=== PATIENT | male | born 1950 | race Caucasian/White ===

== ENCOUNTER 2019-08-27 16:02 | Inpatient (IN) | payer MEDICARE, OTHER ==
[~2019-08-27] VITALS: Ht 180.3 cm; Wt 71.0 kg
[~2019-08-27 16:02] MED LIST: etomidate 2mg/ml inj. ONE
[2019-08-27] MEDS ORDERED: normal saline 1000ML IV soln IV ONE (16:10)
[2019-08-27 16:48] LABS: BASOPHILS % (AUTO) 0.2 % (0-1); EOSINOPHILS # (AUTO) 0.2 X10'3 (0-0.9); EOSINOPHILS % (AUTO) 1.4 % (0-6); HEMATOCRIT 28.3 % (42.0-52.0); HEMOGLOBIN 9.4 g/dl (14.0-17.9); LYMPHOCYTES # (AUTO) 0.6 X10'3 (1.1-4.8); MEAN CORPUSCULAR HEMOGLOBIN 28.4 PG (27.0-31.0); MEAN CORPUSCULAR HGB CONC 33.3 g/dL (33.0-36.5); MEAN CORPUSCULAR VOLUME 85.1 FL (78-98); MEAN PLATELET VOLUME 9.4 FL (7.4-10.4); MONOCYTES # (AUTO) 0.4 X10'3 (0-0.9); MONOCYTES % (AUTO) 2.7 % (2-12); NEUTROPHILS # (AUTO) 13.5 X10'3 (1.8-7.7); NEUTROPHILS % (AUTO) 91.7 % (42-75); PLATELET COUNT 59 X10'3 (140-440); RED BLOOD COUNT 3.33 X10'6 (4.70-6.10); RED CELL DISTRIBUTION WIDTH 14.3 % (11.5-14.5); WHITE BLOOD COUNT 14.7 X10'3 (4.5-11.0)
[2019-08-27 17:06] LABS: ALANINE AMINOTRANSFERASE 35 U/L (12-78); ALBUMIN 1.5 G/DL (3.4-5.0); ALBUMIN/GLOBULIN RATIO 0.3 (1.1-1.5); ALKALINE PHOSPHATASE 124 IU/L (46-116); ANION GAP 9 (8-16); ASPARTATE AMINO TRANSFERASE 51 U/L (10-37); BILIRUBIN,TOTAL 0.8 MG/DL (0.1-1.0); BLOOD UREA NITROGEN 78 MG/DL (7-18); BUN/CREATININE RATIO 38.6 (5.4-32.0); CALCIUM 7.6 MG/DL (8.5-10.1); CHLORIDE 98 MMOL/L (99-107); CREATININE 2.02 MG/DL (0.60-1.10); GLUCOSE 122 MG/DL (70-104); POTASSIUM 3.3 MMOL/L (3.5-5.1); SODIUM 130 MMOL/L (135-145); TOTAL CARBON DIOXIDE 23.4 MMOL/L (24-32); TOTAL PROTEIN 5.9 G/DL (6.4-8.2); eGFR 33 ML/MIN
[2019-08-27 17:11] LABS: ETHANOL < 0.010 GM/DL (0.0-0.010); MAGNESIUM 2.6 MG/DL (1.5-2.4)
[2019-08-27 17:13] LABS: LACTIC SEPSIS 1.4 MMOL/L (0.4-2.0)
[2019-08-27 17:18] LABS: AMMONIA < 10 UMOL/L (11-32)
[2019-08-27] MEDS ORDERED: cefepime 2g/NS 100ml ADVANTAGE 100 ML IV SCH (17:20)
[2019-08-27] MEDS ORDERED: cefepime 2g/NS 100ml ADVANTAGE 100 ML IV ONE (17:24)
[2019-08-27] MEDS ORDERED: IBUP-1985 PO (17:25)
[2019-08-27] MEDS ORDERED: IBUP-2697 PO (17:28)
[2019-08-27 17:39] LABS: PLATELET ESTIMATE DECREASED; TOTAL CELLS COUNTED 100
[2019-08-27] MEDS ORDERED: potassium Cl 20 mEq SR tablet PO STA (17:44)
[2019-08-27] MEDS ORDERED: magnesium 2GM in 50ml NS 50 ML IV ONE (17:45)
[2019-08-27] MEDS ORDERED: magnesium Cl slow-release 64mg tablet PO PRN (18:40)
[2019-08-27] MEDS ORDERED: potassium CL 10mEq/100ml bag 100 ML IV PRN ×2 (18:40)
[2019-08-27] MEDS ORDERED: HYDROcodone/acetaminophen 5mg/325mg tablet PO PRN (18:40)
[2019-08-27] MEDS ORDERED: ondansetron/PF 4mg/2ml inj IV PRN (18:40)
[2019-08-27] MEDS ORDERED: magnesium 4gm in 100ml NS 100 ML IV PRN (18:40)
[2019-08-27] MEDS ORDERED: HYDROcodone/acetaminophen 10/325mg tab PO PRN (18:40)
[2019-08-27] MEDS ORDERED: magnesium 2GM in 50ml NS 50 ML IV PRN (18:40)
[2019-08-27] MEDS ORDERED: mag hydrox/Alum hydrox/simeth 30ml oral suspension PO PRN (18:40)
[2019-08-27] MEDS ORDERED: potassium Cl 20 mEq SR tablet PO PRN ×2 (18:40)
[2019-08-27 18:41] LABS: CLARITY,URINE CLEAR (Clear); COLOR,URINE YELLOW (Yellow); GLUCOSE, URINE NEGATIVE (Neg); KETONES,URINE NEGATIVE (Neg); LEUKOCYTE ESTERASE ,URINE NEGATIVE (Neg); NITRITES, URINE NEGATIVE (Neg); OCCULT BLOOD,URINE TRACE-INTACT (Neg); PH,URINE 5.5 (4.8-8.0); PROTEIN,URINE TRACE mg/dl (Neg)
[2019-08-27 18:52] LABS: UA COLLECTION TYPE URINAL
[2019-08-27 18:54] LABS: BACTERIA,URINE NONE SEEN /HPF (Neg); CELLULAR CAST 0-4 /LPF (NEGATIVE); RBC,URINE 0-2 /HPF (0-2); SQUAMOUS EPITHELIAL CELL,UR FEW /LPF (FEW); TRANSITIONAL EPI CELLS,URINE FEW /HPF; WBC,URINE 0-4 /HPF (0-4)
[2019-08-27] MEDS ORDERED: LIDOcaine 2% 10ml TOPICAL JELLY (Urojet) MM ONE (19:10)
[2019-08-27] MEDS ORDERED: thiamine inj. 100 MG in normal saline 100ml IV soln 100 ML IV ONE (19:45)
[2019-08-27] MEDS ORDERED: haloperidol lactate 5mg/ml inj IM PRN (19:45)
[2019-08-27] MEDS ORDERED: LORazepam 1 MG tablet PO PRN (19:45)
[2019-08-27] MEDS ORDERED: LORazepam 2 mg/ml vial IV PRN (19:45)
[2019-08-27] MEDS ORDERED: haloperidol 5mg tablet PO PRN (19:45)
[2019-08-27] MEDS: K and/or MAG REPLACEMENT MC SCH (20:00)
[2019-08-27] MEDS: docusate sod 100mg capsule PO SCH (20:00)
[2019-08-27] MEDS: normal saline 1000ml 1,000 ML IV SCH (20:03)
[2019-08-27] MEDS: metroNIDAZOLE-Flagyl 500mg/NS 100 ML IV SCH (20:03)
[2019-08-27] MEDS ORDERED: thiamine 100mg/ml 2ml inj. IV ONE (20:25)
--- NOTE | 2019-08-27 20:33 | NUR ---
COLACE HELD, PATIENT WITH DIARRHEA.
[2019-08-27] MEDS: ciprofloxacin/D5W 200mg/100mL 100 ML IV SCH (20:47)
--- NOTE | 2019-08-27 21:35 | NUR ---
PATIENT ADMITTED TO ROOM 357A FROM ER FOR LARGE LIVER MASS, RENAL FAILURE AND FAILURE TO THRIVE. PLACED COMFORTABLE IN BED. VITAL SIGNS TAKEN AND RECORDED.
[2019-08-28] VITALS (17 sets, daily range): BP systolic 81–114; BP diastolic 50–75
[2019-08-28] MEDS ORDERED: heparin, porcine 5000 units/ml vial SQ SCH
[2019-08-28 05:44] LABS: BASOPHILS % (AUTO) 0.3 % (0-1); EOSINOPHILS % (AUTO) 0.4 % (0-6); HEMATOCRIT 26.6 % (42.0-52.0); HEMOGLOBIN 8.8 g/dl (14.0-17.9); LYMPHOCYTES # (AUTO) 0.3 X10'3 (1.1-4.8); LYMPHOCYTES % (AUTO) 2.7 % (21-51); MEAN CORPUSCULAR HEMOGLOBIN 29.3 PG (27.0-31.0); MEAN CORPUSCULAR HGB CONC 33.3 g/dL (33.0-36.5); MEAN CORPUSCULAR VOLUME 87.9 FL (78-98); MEAN PLATELET VOLUME 8.9 FL (7.4-10.4); MONOCYTES # (AUTO) 1.9 X10'3 (0-0.9); MONOCYTES % (AUTO) 17.5 % (2-12); NEUTROPHILS # (AUTO) 8.6 X10'3 (1.8-7.7); NEUTROPHILS % (AUTO) 79.1 % (42-75); PLATELET COUNT 51 X10'3 (140-440); RED BLOOD COUNT 3.02 X10'6 (4.70-6.10); RED CELL DISTRIBUTION WIDTH 14.5 % (11.5-14.5); WHITE BLOOD COUNT 10.9 X10'3 (4.5-11.0)
[2019-08-28] MEDS: normal saline 1000ml 1,000 ML IV SCH ×2 (05:58→14:56)
[2019-08-28 06:06] LABS: ALANINE AMINOTRANSFERASE 31 U/L (12-78); ALBUMIN 1.3 G/DL (3.4-5.0); ALBUMIN/GLOBULIN RATIO 0.3 (1.1-1.5); ALKALINE PHOSPHATASE 105 IU/L (46-116); ANION GAP 9 (8-16); ASPARTATE AMINO TRANSFERASE 35 U/L (10-37); BILIRUBIN,TOTAL 0.6 MG/DL (0.1-1.0); BLOOD UREA NITROGEN 65 MG/DL (7-18); BUN/CREATININE RATIO 42.2 (5.4-32.0); CALCIUM 7.4 MG/DL (8.5-10.1); CHLORIDE 104 MMOL/L (99-107); CREATININE 1.54 MG/DL (0.60-1.10); GLUCOSE 109 MG/DL (70-104); LIPASE 110 U/L (73-393); MAGNESIUM 2.7 MG/DL (1.5-2.4); PHOSPHORUS 4.7 MG/DL (2.3-4.5); SODIUM 135 MMOL/L (135-145); TOTAL CARBON DIOXIDE 22.5 MMOL/L (24-32); TOTAL PROTEIN 5.5 G/DL (6.4-8.2); eGFR 45 ML/MIN
[2019-08-28 06:14] LABS: POTASSIUM 2.9 MMOL/L (3.5-5.1)
--- NOTE | 2019-08-28 06:30 | NUR ---
Problems reprioritized. Patient report given, questions answered & plan of care reviewed with LINDA ASENCIO. REPORTED ABOUT CRITICAL POTASSIUM 2.9 AND PATIENT ALREADY WITH ORDER OF REPLACEMENT PROTOCOL.
--- NOTE | 2019-08-28 06:50 | NUR ---
Patient in room [facility] 357. I have received report from Kelsey Cole RN and had the opportunity to ask questions and assume patient care.
[2019-08-28] MEDS: docusate sod 100mg capsule PO SCH ×2 (07:59→19:42)
[2019-08-28] MEDS: thiamine 100mg tablet PO SCH (07:59)
[2019-08-28] MEDS: ciprofloxacin/D5W 200mg/100mL 100 ML IV SCH ×2 (07:59→19:41)
[2019-08-28] MEDS: folic acid 1mg tablet PO SCH (07:59)
[2019-08-28] MEDS: multivitamins, therapeutics tablet PO SCH (07:59)
[2019-08-28] MEDS: metroNIDAZOLE-Flagyl 500mg/NS 100 ML IV SCH ×2 (07:59→17:41)
[2019-08-28] MEDS ORDERED: MVI, adult No.4 with vit. K 10 ML in dextrose 5% water 500ml 500 ML IV SCH ×2 (08:00)
[2019-08-28] MEDS ORDERED: ipratropium/albuterol 3ml nebule ONE (08:46)
[2019-08-28] MEDS ORDERED: methylPREDNISolone sod succ 125mg/2ml vial IV ONE (08:50)
[2019-08-28 09:05] LABS: ABG BASE EXCESS -14.4 mmol/L (-2.0-3.0); ABG HCO3 11.8 mmol/L (22.0-26.0); ABG OXYGEN SATURATION 98.8 % (95-98); ABG PCO2 (T) 28.9 mmHg (35.0-45.0); ABG PO2 (T) 163.1 mmHg (83-108); ALLEN'S TEST POSITIVE; FCOHb 0.3 % (0.5-1.5); FLOW 15 L/min; FMetHb 0.3 % (0.3-1.12); FO2Hb 98.2 % (94-100); TOTAL HEMOGLOBIN 10.6 G/dl (14.0-17.9)
[2019-08-28 09:06] LABS: PLATELET ESTIMATE DECREASED; TOTAL CELLS COUNTED 100
--- NOTE | 2019-08-28 09:35 | NUR ---
Pt stable this AM by 0800. Pt stated he was a bit short of breath as he was sitting in the bedside commode. Pt was a bit shake but stable. Pt given Flagyl & Cipro, once pt was put on a chair from commode pt stated he was having a hard time breathing. O2 was bumped up to 5L. RR was called, vitals taken, antibiotics stooped and NS at 100ml continue to run. Pt continued to have RF, pt transferred to bed. pt felt hot, temp was 102.7. ICU nurse aware of temp. RR team took over. RT gave treatment & put on a rebreather mask 15L. Pt continued to deteriorate RR team & Dr Christianson agreed to send Pt to ICU. ABGs drawn.
--- NOTE | 2019-08-28 09:36 | NUR ---
patient arrived to 2010 alert and oriented. attached to monitor and oriented to room and given call light with instructions to call for assistance. Sinus tach 130's, RR 30's sats 100 on nonrebreather. Hypotensive 98/63
[2019-08-28] MEDS ORDERED: normal saline 1000ml 1,000 ML IV ONE ×3 (10:00→12:30)
[2019-08-28] MEDS ORDERED: LIDOcaine 2% 10ml TOPICAL JELLY (Urojet) TP ONE (10:00)
[2019-08-28 10:03] LABS: HEMOGLOBIN 9.7 g/dl (14.0-17.9); MEAN PLATELET VOLUME 8.9 FL (7.4-10.4)
[2019-08-28 10:05] LABS: MEAN CORPUSCULAR HEMOGLOBIN 29.1 PG (27.0-31.0); MEAN CORPUSCULAR HGB CONC 33.4 g/dL (33.0-36.5); RED BLOOD COUNT 3.33 X10'6 (4.70-6.10); RED CELL DISTRIBUTION WIDTH 14.4 % (11.5-14.5); WHITE BLOOD COUNT 7.2 X10'3 (4.5-11.0)
[2019-08-28 10:12] LABS: PLATELET COUNT 43 X10'3 (140-440)
[2019-08-28 10:21] LABS: ANION GAP 11 (8-16); ASPARTATE AMINO TRANSFERASE 63 U/L (10-37); BLOOD UREA NITROGEN 63 MG/DL (7-18); CHLORIDE 104 MMOL/L (99-107); MAGNESIUM 2.3 MG/DL (1.5-2.4); POTASSIUM 3.9 MMOL/L (3.5-5.1); SODIUM 133 MMOL/L (135-145)
[2019-08-28 10:22] LABS: ALANINE AMINOTRANSFERASE 32 U/L (12-78); ALBUMIN 1.4 G/DL (3.4-5.0); ALBUMIN/GLOBULIN RATIO 0.3 (1.1-1.5); ALKALINE PHOSPHATASE 167 IU/L (46-116); BILIRUBIN,TOTAL 0.8 MG/DL (0.1-1.0); CALCIUM 7.6 MG/DL (8.5-10.1); CREATININE 1.73 MG/DL (0.60-1.10); GLUCOSE 155 MG/DL (70-104); PHOSPHORUS 5.5 MG/DL (2.3-4.5); TOTAL PROTEIN 5.8 G/DL (6.4-8.2); eGFR 39 ML/MIN
[2019-08-28 10:25] LABS: BUN/CREATININE RATIO 36.4 (5.4-32.0)
[2019-08-28 10:33] LABS: PLATELET ESTIMATE DECREASED; TOTAL CELLS COUNTED 100
[2019-08-28] MEDS: acetaminophen 325mg tablet PO PRN (10:33)
--- NOTE | 2019-08-28 11:38 | NUR ---
Confirmed with MD that CT is IV contrast only
[2019-08-28] MEDS: K and/or MAG REPLACEMENT MC SCH ×2 (12:04→19:42)
[2019-08-28 12:50] LABS: ABG BASE EXCESS -5.7 mmol/L (-2.0-3.0); ABG HCO3 17.4 mmol/L (22.0-26.0); ABG OXYGEN SATURATION 93.6 % (95-98); ABG PCO2 (T) 25.6 mmHg (35.0-45.0); ALLEN'S TEST POSITIVE; FCOHb 0.4 % (0.5-1.5); FLOW 1 L/min; FMetHb 0.2 % (0.3-1.12)
[2019-08-28] MEDS ORDERED: iohexol 300mg/ml 100ml inj. ONE (13:13)
--- NOTE | 2019-08-28 14:41 | NUR ---
Malnutrition consult: Multiple attempted visits with pt at bedside however pt sleeping. Pt initially admitted to surgical floor however transferred to critical care s/p rapid response because of respiratory distress per MD notes. Patient's current wt of 63.64 kg is pt stated with only scaled wt hx of 73 kg taken 08/05/16 using standing scale. Pt with severe visible muscle wasting in clavicle area with mild bilat temporal wasting. Per H&P pt reports very poor PO intake over the past several weeks however continues to drink alcohol daily. Pt s/p BSS today with ST recs mech soft grind all food with thin liquids, pending documentation of PO intake for today although pt with 50% PO intake at dinner last night. Pt with no documented edema and only mild muscle weakness however per ED report pt states he has been having to use a cane over the last two weeks d/t weakness. Pt currently meets criteria for malnutrition, MD notified. Pt would benefit from malnutrition education once stable. Pt admitted with sepsis, STACEY, and large liver mass likely hepatocellular carcinoma per MD notes. Pt reports constipation over the past few days now with some intermittent small loose stools per ED report. Pt receiving routine bowel care and pt documented with two BMs 08/26. Will continue to follow closely and make recommendations as appropriate. Recommendations: 1) Continue mech soft grind all renal diet with thin liquids per ST recs 2) Monitor need for ONS 3) Continue Thiamine, Folic acid, and MVI given EtOH hx 4) Monitor need for Phos binder; serum Phos 5.5 today 5) Routine bowel care 6) Wt per rx Addendum: 08/28/19 at [address] Amended: Links added.
--- NOTE | 2019-08-28 14:51 | NUR ---
Pt continues to be hypotensive despite 3L NS. notified. He states he will be here soon
[2019-08-28] MEDS ORDERED: midazolam 100mg in NS 100ml 100 ML IV PRN (15:01)
[2019-08-28] MEDS ORDERED: fentaNYL/PF 50MCG/1 ML 2ML syringe IV PRN (15:05)
[2019-08-28] MEDS ORDERED: midazolam 2 mg/2 ml injection IV ONE (15:05)
[2019-08-28] MEDS ORDERED: ipratropium/albuterol 3ml nebule NEB PRN (15:05)
[2019-08-28] MEDS ORDERED: midazolam 2 mg/2 ml injection ONE ×3 (15:14→15:24)
[2019-08-28] MEDS ORDERED: NORepinephrine 8mg/ 250ml NS 250 ML IV PRN ×2 (15:17→15:20)
[2019-08-28] MEDS ORDERED: MIDAZolam 5mg/ml 2ml vial IV ONE ×2 (15:20→15:30)
[2019-08-28] MEDS ORDERED: etomidate 2mg/ml inj. IV ONE (15:25)
[2019-08-28] MEDS: FENTANYL-0.9 % NACL/PF 100 ML IV PRN (16:08)
[2019-08-28 16:16] LABS: ABG BASE EXCESS -10.5 mmol/L (-2.0-3.0); ABG HCO3 14.4 mmol/L (22.0-26.0); ABG PCO2 (T) 26.2 mmHg (35.0-45.0); ABG PH (T) 7.348 (7.350-7.450); ABG PO2 (T) 191.4 mmHg (83-108); ALLEN'S TEST POSITIVE; FCOHb 0.3 % (0.5-1.5); FMetHb 0.2 % (0.3-1.12); FO2Hb 98.5 % (94-100); RESPIRATORY RATE 20 b/min; TIDAL VOLUME 400 mL; TOTAL HEMOGLOBIN 8.9 G/dl (14.0-17.9)
[2019-08-28 16:26] LABS: OXYGEN SATURATION (MIXED VEN) 82.8 % (60-80); PO2 MIXED VENOUS (TEMP COR) 57.4 mmHg (35-46)
[2019-08-28 17:56] LABS: OXYGEN SATURATION (MIXED VEN) 81.8 % (60-80); PO2 MIXED VENOUS (TEMP COR) 51.2 mmHg (35-46)
--- NOTE | 2019-08-28 18:30 | NUR ---
Patient in room CICU 2010. I have received report from Jayy ASENCIO and had the opportunity to ask questions and assume patient care.
[2019-08-28] MEDS: ipratropium/albuterol 3ml nebule NEB SCH ×2 (18:57→23:14)
[2019-08-28] MEDS: lactobacillus rhamnosus 10,000 MMU CELLS/CAPSULE PO SCH (19:42)
[2019-08-28] MEDS ORDERED: diatr meglu/diatrizoate 30ml oral sol.-(3 dose) bottle PO SCH (21:00)
[2019-08-29] VITALS (24 sets, daily range): BP systolic 92–116; BP diastolic 56–79
[2019-08-29] MEDS: metroNIDAZOLE-Flagyl 500mg/NS 100 ML IV SCH ×3 (00:11→15:19)
[2019-08-29] MEDS: normal saline 1000ml 1,000 ML IV SCH ×4 (00:11→23:29)
[2019-08-29 02:37] LABS: BASOPHILS % (AUTO) 0.2 % (0-1); EOSINOPHILS % (AUTO) 0 % (0-6); HEMATOCRIT 25.7 % (42.0-52.0); HEMOGLOBIN 8.4 g/dl (14.0-17.9); LYMPHOCYTES # (AUTO) 0.5 X10'3 (1.1-4.8); LYMPHOCYTES % (AUTO) 4.2 % (21-51); MEAN CORPUSCULAR HEMOGLOBIN 28.5 PG (27.0-31.0); MEAN CORPUSCULAR HGB CONC 32.7 g/dL (33.0-36.5); MEAN CORPUSCULAR VOLUME 87.2 FL (78-98); MEAN PLATELET VOLUME 9.3 FL (7.4-10.4); MONOCYTES # (AUTO) 0.3 X10'3 (0-0.9); MONOCYTES % (AUTO) 2.5 % (2-12); NEUTROPHILS # (AUTO) 11.5 X10'3 (1.8-7.7); NEUTROPHILS % (AUTO) 93.1 % (42-75); PLATELET COUNT 53 X10'3 (140-440); RED BLOOD COUNT 2.95 X10'6 (4.70-6.10); RED CELL DISTRIBUTION WIDTH 14.7 % (11.5-14.5); WHITE BLOOD COUNT 12.4 X10'3 (4.5-11.0)
[2019-08-29 02:43] LABS: ALANINE AMINOTRANSFERASE 28 U/L (12-78); ALBUMIN 1.3 G/DL (3.4-5.0); ALBUMIN/GLOBULIN RATIO 0.3 (1.1-1.5); ALKALINE PHOSPHATASE 100 IU/L (46-116); ANION GAP 7 (8-16); ASPARTATE AMINO TRANSFERASE 22 U/L (10-37); BILIRUBIN,TOTAL 0.4 MG/DL (0.1-1.0); BLOOD UREA NITROGEN 58 MG/DL (7-18); BUN/CREATININE RATIO 41.4 (5.4-32.0); CALCIUM 7.5 MG/DL (8.5-10.1); CHLORIDE 112 MMOL/L (99-107); GLUCOSE 177 MG/DL (70-104); LIPASE < 50 U/L (73-393); MAGNESIUM 2.5 MG/DL (1.5-2.4); PHOSPHORUS 6.3 MG/DL (2.3-4.5); POTASSIUM 4.1 MMOL/L (3.5-5.1); SODIUM 140 MMOL/L (135-145); TOTAL CARBON DIOXIDE 20.6 MMOL/L (24-32); TOTAL PROTEIN 5.3 G/DL (6.4-8.2); eGFR 50 ML/MIN
[2019-08-29] MEDS: ipratropium/albuterol 3ml nebule NEB SCH ×4 (02:57→19:57)
[2019-08-29 03:11] LABS: ABG BASE EXCESS -8.8 mmol/L (-2.0-3.0); ABG HCO3 16.2 mmol/L (22.0-26.0); ABG OXYGEN SATURATION 96.7 % (95-98); ABG PCO2 (T) 30.9 mmHg (35.0-45.0); ABG PH (T) 7.334 (7.350-7.450); ABG PO2 (T) 97.4 mmHg (83-108); FCOHb 0.3 % (0.5-1.5); FMetHb 0.1 % (0.3-1.12); FO2Hb 96.3 % (94-100); PATIENT TEMPERATURE 36.5; PEEP 5 cm H2O; RESPIRATORY RATE 20 b/min; TIDAL VOLUME 400 mL; TOTAL HEMOGLOBIN 9.1 G/dl (14.0-17.9)
[2019-08-29] MEDS: ciprofloxacin/D5W 200mg/100mL 100 ML IV SCH (07:41)
[2019-08-29] MEDS: folic acid 1mg tablet PO SCH (07:42)
[2019-08-29] MEDS: lactobacillus rhamnosus 10,000 MMU CELLS/CAPSULE PO SCH ×2 (07:42→20:12)
[2019-08-29] MEDS: thiamine 100mg tablet PO SCH (07:42)
[2019-08-29] MEDS: docusate sod 100mg capsule PO SCH ×2 (07:44→20:12)
[2019-08-29] MEDS: multivitamins, therapeutics tablet PO SCH (07:52)
[2019-08-29] MEDS: K and/or MAG REPLACEMENT MC SCH ×2 (08:00→20:00)
[2019-08-29] MEDS: FENTANYL-0.9 % NACL/PF 100 ML IV PRN (09:53)
[2019-08-29] MEDS ORDERED: racepinephrine 11.25mg/0.5ml nebule NEB PRN (10:40)
--- NOTE | 2019-08-29 11:10 | NUR ---
Pt extubated at 1110 by RT Jillian. Pt on 3L NC 02 saturation 99%, HR 93, BP 120/77. Responding appropriately.
[2019-08-29] MEDS: CefTRIAXone/D5W-Rocephin 1gm 50 ML IV SCH (17:16)
[2019-08-29 17:58] LABS: CLARITY,URINE SLIGHTLY CLOUDY (Clear); COLOR,URINE Yellow (Yellow); PH,URINE 5.5 (4.8-8.0); UA COLLECTION TYPE FOLEY CATH
[2019-08-29 17:59] LABS: GLUCOSE, URINE Negative (Neg); KETONES,URINE Negative (Neg); LEUKOCYTE ESTERASE ,URINE NEGATIVE (Neg); NITRITES, URINE NEGATIVE (Neg); OCCULT BLOOD,URINE TRACE-INTACT (Neg); PROTEIN,URINE Negative (Neg); UROBILINOGEN,URINE 0.2 E.U/dL (0.2-1.0)
[2019-08-29 18:04] LABS: MUCUS STRANDS FEW /LPF (Neg); SQUAMOUS EPITHELIAL CELL,UR FEW /LPF (FEW)
[2019-08-29 18:05] LABS: WBC,URINE 0-4 /HPF (0-4)
[2019-08-29 18:06] LABS: CAL OXALATE CRYSTALS FEW /HPF (NEGATIVE)
[2019-08-29 18:07] LABS: BACTERIA,URINE FEW /HPF (Neg); URIC ACID CRYSTALS 1+ /HPF (NEGATIVE)
--- NOTE | 2019-08-29 18:30 | NUR ---
Patient in room CICU 2010. I have received report from LUIS M Hope and had the opportunity to ask questions and assume patient care. Patient seated in bed, Awake and alert to person, place and time. Patient requesting water.
[2019-08-29 19:49] LABS: UA EOSINOPHILS NO EOS /HPF
[2019-08-29] MEDS: mineral oil/petrolatum ophthal oint EACHEYE SCH (20:00)
[2019-08-30] VITALS (24 sets, daily range): BP systolic 113–158; BP diastolic 63–94
[2019-08-30] MEDS: metroNIDAZOLE-Flagyl 500mg/NS 100 ML IV SCH ×2 (00:14→08:27)
[2019-08-30] MEDS: mineral oil/petrolatum ophthal oint EACHEYE SCH ×2 (00:15→08:00)
[2019-08-30] MEDS ORDERED: mag hydrox/Alum hydrox/simeth 30ml oral suspension PO PRN (00:30)
[2019-08-30] MEDS: ipratropium/albuterol 3ml nebule NEB SCH ×4 (02:09→20:08)
[2019-08-30 03:15] LABS: BASOPHILS # (AUTO) 0.1 X10'3 (0-0.2); BASOPHILS % (AUTO) 1.4 % (0-1); EOSINOPHILS % (AUTO) 0.3 % (0-6); HEMATOCRIT 24.1 % (42.0-52.0); LYMPHOCYTES # (AUTO) 0.7 X10'3 (1.1-4.8); LYMPHOCYTES % (AUTO) 7.3 % (21-51); MEAN CORPUSCULAR HEMOGLOBIN 28.7 PG (27.0-31.0); MEAN CORPUSCULAR HGB CONC 33.2 g/dL (33.0-36.5); MEAN CORPUSCULAR VOLUME 86.2 FL (78-98); MEAN PLATELET VOLUME 8.5 FL (7.4-10.4); MONOCYTES # (AUTO) 0.3 X10'3 (0-0.9); MONOCYTES % (AUTO) 3.1 % (2-12); NEUTROPHILS # (AUTO) 8.4 X10'3 (1.8-7.7); NEUTROPHILS % (AUTO) 87.9 % (42-75); PLATELET COUNT 54 X10'3 (140-440); RED CELL DISTRIBUTION WIDTH 14.6 % (11.5-14.5); WHITE BLOOD COUNT 9.5 X10'3 (4.5-11.0)
[2019-08-30 03:34] LABS: ALANINE AMINOTRANSFERASE 18 U/L (12-78); ALBUMIN 1.3 G/DL (3.4-5.0); ALBUMIN/GLOBULIN RATIO 0.3 (1.1-1.5); ALKALINE PHOSPHATASE 90 IU/L (46-116); ANION GAP 8 (8-16); ASPARTATE AMINO TRANSFERASE 16 U/L (10-37); BILIRUBIN,TOTAL 0.6 MG/DL (0.1-1.0); BLOOD UREA NITROGEN 43 MG/DL (7-18); BUN/CREATININE RATIO 39.1 (5.4-32.0); CALCIUM 7.3 MG/DL (8.5-10.1); CHLORIDE 113 MMOL/L (99-107); GLUCOSE 125 MG/DL (70-104); LIPASE 174 U/L (73-393); MAGNESIUM 1.9 MG/DL (1.5-2.4); PHOSPHORUS 2.7 MG/DL (2.3-4.5); POTASSIUM 3.6 MMOL/L (3.5-5.1); SODIUM 141 MMOL/L (135-145); TOTAL CARBON DIOXIDE 19.8 MMOL/L (24-32); TOTAL PROTEIN 5.1 G/DL (6.4-8.2); eGFR 66 ML/MIN
--- NOTE | 2019-08-30 05:03 | NUR ---
Patient requesting water throughout shift. Needs to be seated upright while eating or drinking. Patient experiences hiccups and belching frequently with intake of fluids. Patient educated on swallowing slower and taking less volume when drinking. Patient is weak and unable to reposition himself in bed without assistance. Patient repositioned every 2 hours and as needed throughout shift.
--- NOTE | 2019-08-30 06:10 | NUR ---
Problems reprioritized. Patient report given, questions answered & plan of care reviewed with LUIS M Alexandre.
--- NOTE | 2019-08-30 06:20 | NUR ---
Patient in room CICU 2011B. I have received report from Kati and had the opportunity to ask questions and assume patient care.
[2019-08-30] MEDS: K and/or MAG REPLACEMENT MC SCH ×2 (08:00→20:00)
[2019-08-30] MEDS: thiamine 100mg tablet PO SCH (08:26)
[2019-08-30] MEDS: folic acid 1mg tablet PO SCH (08:26)
[2019-08-30] MEDS: multivitamins, therapeutics tablet PO SCH (08:26)
[2019-08-30] MEDS: lactobacillus rhamnosus 10,000 MMU CELLS/CAPSULE PO SCH ×2 (08:26→19:54)
[2019-08-30] MEDS: docusate sod 100mg capsule PO SCH ×3 (08:26→21:58)
[2019-08-30] MEDS: CefTRIAXone/D5W-Rocephin 1gm 50 ML IV SCH (11:50)
--- NOTE | 2019-08-30 16:05 | NUR ---
Patient c/o "I can't breathe" after given neb treatment. SpO2 97% on RA, RR 12-18 and speaking in full sentences. Patient lungs are clear bilaterally with good air movement, no stridor on auscultation. Patient continuing to speak in full sentences. Patient stating "put the tube back in my throat" and "can I have an inhaler". Offered patient neb treatment and patient declined stating "that's not the same". Explained to patient plan of care and that we are closely monitoring him. Patient then fell back to sleep. Maintaining airway at this time and will continue to monitor patient.
--- NOTE | 2019-08-30 16:20 | NUR ---
Patient requesting popsicle, no complaints of respiratory distress at this time. VS remain stable.
[2019-08-30] MEDS: normal saline 1000ml 1,000 ML IV SCH (16:41)
[2019-08-30] MEDS: metroNIDAZOLE 500mg tablet PO SCH (16:41)
[2019-08-30] MEDS ORDERED: normal saline 1000ml 1,000 ML IV ONE (17:20)
--- NOTE | 2019-08-30 18:14 | NUR ---
Problems reprioritized. Patient report given, questions answered & plan of care reviewed with MANUEL ASENCIO. Patient stable at time of shift change.
--- NOTE | 2019-08-30 18:28 | NUR ---
Patient in room CICU 2010. I have received report from LUIS M Alexandre and had the opportunity to ask questions and assume patient care.
[2019-08-30] MEDS: HYDROcodone/acetaminophen 5mg/325mg tablet PO PRN (19:57)
[2019-08-31] VITALS (21 sets, daily range): BP systolic 120–146; BP diastolic 66–93
[2019-08-31] MEDS: metroNIDAZOLE 500mg tablet PO SCH ×2 (00:52→07:46)
[2019-08-31] MEDS: HYDROcodone/acetaminophen 5mg/325mg tablet PO PRN (00:53)
[2019-08-31] MEDS: ipratropium/albuterol 3ml nebule NEB SCH ×4 (02:05→20:07)
[2019-08-31 02:50] LABS: BASOPHILS % (AUTO) 0.3 % (0-1); EOSINOPHILS # (AUTO) 0.1 X10'3 (0-0.9); EOSINOPHILS % (AUTO) 0.9 % (0-6); HEMATOCRIT 22.7 % (42.0-52.0); HEMOGLOBIN 7.5 g/dl (14.0-17.9); LYMPHOCYTES # (AUTO) 0.7 X10'3 (1.1-4.8); LYMPHOCYTES % (AUTO) 9.5 % (21-51); MEAN CORPUSCULAR HEMOGLOBIN 28.8 PG (27.0-31.0); MEAN CORPUSCULAR VOLUME 87.2 FL (78-98); MEAN PLATELET VOLUME 8.1 FL (7.4-10.4); MONOCYTES # (AUTO) 0.3 X10'3 (0-0.9); MONOCYTES % (AUTO) 4.1 % (2-12); NEUTROPHILS # (AUTO) 5.9 X10'3 (1.8-7.7); NEUTROPHILS % (AUTO) 85.2 % (42-75); PLATELET COUNT 60 X10'3 (140-440); RED CELL DISTRIBUTION WIDTH 14.6 % (11.5-14.5); WHITE BLOOD COUNT 6.9 X10'3 (4.5-11.0)
[2019-08-31 02:59] LABS: ALANINE AMINOTRANSFERASE 17 U/L (12-78); ALBUMIN 1.2 G/DL (3.4-5.0); ALBUMIN/GLOBULIN RATIO 0.3 (1.1-1.5); ALKALINE PHOSPHATASE 74 IU/L (46-116); ANION GAP 6 (8-16); ASPARTATE AMINO TRANSFERASE 19 U/L (10-37); BILIRUBIN,TOTAL 0.8 MG/DL (0.1-1.0); BLOOD UREA NITROGEN 24 MG/DL (7-18); CALCIUM 7.2 MG/DL (8.5-10.1); CHLORIDE 115 MMOL/L (99-107); CREATININE 0.75 MG/DL (0.60-1.10); GLUCOSE 101 MG/DL (70-104); LIPASE 119 U/L (73-393); MAGNESIUM 1.5 MG/DL (1.5-2.4); PHOSPHORUS 2.9 MG/DL (2.3-4.5); POTASSIUM 3.5 MMOL/L (3.5-5.1); SODIUM 143 MMOL/L (135-145); TOTAL PROTEIN 4.9 G/DL (6.4-8.2); eGFR > 90 ML/MIN
[2019-08-31] MEDS: normal saline 1000ml 1,000 ML IV SCH ×3 (04:40→22:39)
--- NOTE | 2019-08-31 06:31 | NUR ---
Problems reprioritized. Patient report given, questions answered & plan of care reviewed with LUIS M Zaidi.
--- NOTE | 2019-08-31 06:34 | NUR ---
Patient in room CICU 2010. I have received report from LUIS M De La Cruz and had the opportunity to ask questions and assume patient care.
[2019-08-31] MEDS: folic acid 1mg tablet PO SCH (07:46)
[2019-08-31] MEDS: CefTRIAXone/D5W-Rocephin 1gm 50 ML IV SCH (07:46)
[2019-08-31] MEDS: docusate sod 100mg capsule PO SCH ×2 (07:47→20:00)
[2019-08-31] MEDS: multivitamins, therapeutics tablet PO SCH (07:47)
[2019-08-31] MEDS: thiamine 100mg tablet PO SCH (07:47)
[2019-08-31] MEDS: lactobacillus rhamnosus 10,000 MMU CELLS/CAPSULE PO SCH ×2 (07:47→22:05)
[2019-08-31] MEDS: K and/or MAG REPLACEMENT MC SCH ×2 (07:48→20:00)
--- NOTE | 2019-08-31 11:15 | NUR ---
Reassessment: Pt placed on pureed/thin diet per [employer] REMOVER 08/28 PO 25% avg meals. STACEY and metabolic acidosis resolved pending liver biopsy once stable per MD. Pt seen by RD for written/verbal malnutrition ed w/ RD contact information and ONS coupons provided. Pt is agreeable to chocolate/strawberry ensure enlive TIDWM; MD notified. LBM 08/30. Receiving thiamin/folic/MVI for etoh hx. Will continue to monitor. Recommendations: 1) Continue pureed diet with thin liquids per ST recs 2) chocolate/strawberry ensure enlive TIDWM 3) Continue Thiamine, Folic acid, and MVI given EtOH hx 4) Routine bowel care 5) weekly wts Addendum: 08/31/19 at [address] Amended: Links added.
[2019-08-31] MEDS: levoFLOXACIN-Levaquin 750MG/D5 150 ML IV SCH (15:29)
[2019-08-31 15:50] LABS: OCCULT BLOOD STOOL NEGATIVE (Neg)
--- NOTE | 2019-08-31 18:40 | NUR ---
Problems reprioritized. Patient report given, questions answered & plan of care reviewed with LUIS M Peters.
--- NOTE | 2019-08-31 19:08 | NUR ---
Patient in room CICU 2010. I have received report from LUIS M Zaidi and had the opportunity to ask questions and assume patient care.
--- NOTE | 2019-08-31 19:52 | NUR ---
Called Stoney Mckeon to inform him of Gram + Cocci in pairs for the Anaerobic blood culture drawn from left arm. No further orders placed at this time.
[2019-09-01] VITALS (27 sets, daily range): BP systolic 99–143; BP diastolic 44–91
[2019-09-01] MEDS: ipratropium/albuterol 3ml nebule NEB SCH ×2 (02:07→07:47)
[2019-09-01] MEDS: normal saline 1000ml 1,000 ML IV SCH ×2 (02:33→18:39)
--- NOTE | 2019-09-01 02:33 | NUR ---
Patient took off his NC momentarily. O2 Saturation is maintaining in the mid 90's. (93-95%). Will continue to monitor while NC is out of patients nose. Addendum: 09/01/19 at 0235 by Lorraine Kelly RN Amended: Links added.
[2019-09-01 02:46] LABS: BASOPHILS % (AUTO) 0.1 % (0-1); EOSINOPHILS % (AUTO) 0.5 % (0-6); HEMATOCRIT 22.6 % (42.0-52.0); HEMOGLOBIN 7.4 g/dl (14.0-17.9); LYMPHOCYTES # (AUTO) 0.8 X10'3 (1.1-4.8); LYMPHOCYTES % (AUTO) 10.8 % (21-51); MEAN CORPUSCULAR HEMOGLOBIN 28.7 PG (27.0-31.0); MEAN CORPUSCULAR HGB CONC 32.9 g/dL (33.0-36.5); MEAN CORPUSCULAR VOLUME 87.3 FL (78-98); MEAN PLATELET VOLUME 8.5 FL (7.4-10.4); MONOCYTES # (AUTO) 0.3 X10'3 (0-0.9); MONOCYTES % (AUTO) 4.2 % (2-12); NEUTROPHILS # (AUTO) 5.9 X10'3 (1.8-7.7); NEUTROPHILS % (AUTO) 84.4 % (42-75); PLATELET COUNT 59 X10'3 (140-440); RED BLOOD COUNT 2.58 X10'6 (4.70-6.10); RED CELL DISTRIBUTION WIDTH 14.6 % (11.5-14.5)
[2019-09-01 02:56] LABS: ALANINE AMINOTRANSFERASE 14 U/L (12-78); ALBUMIN 1.3 G/DL (3.4-5.0); ALBUMIN/GLOBULIN RATIO 0.4 (1.1-1.5); ALKALINE PHOSPHATASE 71 IU/L (46-116); ANION GAP 4 (8-16); ASPARTATE AMINO TRANSFERASE 19 U/L (10-37); BILIRUBIN,TOTAL 0.5 MG/DL (0.1-1.0); BLOOD UREA NITROGEN 18 MG/DL (7-18); CALCIUM 7.3 MG/DL (8.5-10.1); CHLORIDE 115 MMOL/L (99-107); CREATININE 0.75 MG/DL (0.60-1.10); GLUCOSE 103 MG/DL (70-104); LIPASE 129 U/L (73-393); MAGNESIUM 1.3 MG/DL (1.5-2.4); PHOSPHORUS 2.4 MG/DL (2.3-4.5); POTASSIUM 3.6 MMOL/L (3.5-5.1); SODIUM 144 MMOL/L (135-145); TOTAL CARBON DIOXIDE 24.9 MMOL/L (24-32); eGFR > 90 ML/MIN
[2019-09-01 03:02] LABS: % IRON SATURATION 25 % (11-46); IRON 26 UG/DL (53-167); TOTAL IRON BINDING CAPACITY 106 UG/DL (259-388)
[2019-09-01] MEDS: magnesium Cl slow-release 64mg tablet PO PRN (04:21)
--- NOTE | 2019-09-01 06:00 | NUR ---
Patient in room CICU 2010. I have received report from toma Ramirez and had the opportunity to ask questions and assume patient care.
--- NOTE | 2019-09-01 06:16 | NUR ---
Problems reprioritized. Patient report given, questions answered & plan of care reviewed with LUIS M Zaidi.
[2019-09-01] MEDS: docusate sod 100mg capsule PO SCH ×2 (08:00→19:32)
[2019-09-01] MEDS: lactobacillus rhamnosus 10,000 MMU CELLS/CAPSULE PO SCH ×2 (08:32→19:52)
[2019-09-01] MEDS: thiamine 100mg tablet PO SCH (08:32)
[2019-09-01] MEDS: levoFLOXACIN-Levaquin 750MG/D5 150 ML IV SCH (08:32)
[2019-09-01] MEDS: folic acid 1mg tablet PO SCH (08:32)
[2019-09-01] MEDS: multivitamins, therapeutics tablet PO SCH (08:33)
[2019-09-01] MEDS: K and/or MAG REPLACEMENT MC SCH ×2 (08:34→19:53)
[2019-09-01] MEDS ORDERED: midazolam 2 mg/2 ml injection ONE ×2 (10:28→10:47)
--- NOTE | 2019-09-01 10:45 | NUR ---
heart rate 140's,RR 40's after dr. simon completed ultz guided liver abcess drainage at bedside,pt given 1 mg versed during procedure pt develped stridor,Dr. Marin aware, order taken for 2 mg versed,given 1055,pt placed on NRB. 1105- heart rate =115,RR=26,gaq7=956% sb=984/86 cont . to moniter closely
--- NOTE | 2019-09-01 10:55 | NUR ---
CALLED FOR BREATHING TX. CAME TO ASSESS PT. WITH CRITICAL CARE NURSE ROBERT WHO REPORTED STRIDOR. SAW DR. CORRAL AND ASKED IF HE WANTED BREATHING TREATMENT AND/OR RACEMIC EPINEPHRINE. ASKED TO HOLD BOTH. PT RECEIVED VERSED AND SPO2 NORMALISING WITH FINGER PULSE OX. NORMAL PULSE OX PICKING UP TOO MUCH ARTIFACT TO READ PROERLY. Addendum: 09/01/19 at 1101 [address] Amended: Links added.
[2019-09-01] MEDS ORDERED: midazolam 2 mg/2 ml injection IV ONE (11:05)
[2019-09-01 12:31] LABS: LDH,BODY FLUID 32392 U/L
[2019-09-01 12:34] LABS: GLUCOSE,BODY FLUID 8 MG/DL; TOTAL PROTEIN,BODY FLUID 3.7 G/DL
[2019-09-01] MEDS: CefTRIAXone 2gm/D5W 50ml 50 ML IV SCH (12:37)
[2019-09-01 13:03] LABS: BFAPPEAR TURBID
[2019-09-01 13:04] LABS: BFCOLOR YELLOW; BFVOLUME 46 ML
[2019-09-01 13:05] LABS: BF RBC COUNT 1171 /CU MM; BF WBC COUNT 244900 /CU MM (0-1000)
[2019-09-01 13:12] LABS: LYMPHOCYTES,BODY FLUID 0 %; MONOCYTES,BODY FLUID 2 %; NEUTROPHILS,BODY FLUID 98 %
[2019-09-01] MEDS: ipratropium/albuterol 3ml nebule NEB PRN ×2 (14:24→20:08)
--- NOTE | 2019-09-01 15:00 | NUR ---
PICC line RN notified need for picc line,stated might not be until 09/01
--- NOTE | 2019-09-01 18:12 | NUR ---
Problems reprioritized. Patient report given, questions answered & plan of care reviewed with .LUIS M Gibbons
[2019-09-01] MEDS: HYDROcodone/acetaminophen 5mg/325mg tablet PO PRN (20:06)
[2019-09-02] VITALS (15 sets, daily range): BP systolic 118–135; BP diastolic 64–90
[2019-09-02] MEDS: ipratropium/albuterol 3ml nebule NEB PRN ×3 (02:08→19:47)
[2019-09-02 02:46] LABS: BASOPHILS % (AUTO) 0.3 % (0-1); EOSINOPHILS # (AUTO) 0.1 X10'3 (0-0.9); EOSINOPHILS % (AUTO) 1.4 % (0-6); HEMATOCRIT 22.3 % (42.0-52.0); HEMOGLOBIN 7.3 g/dl (14.0-17.9); LYMPHOCYTES # (AUTO) 0.8 X10'3 (1.1-4.8); LYMPHOCYTES % (AUTO) 15.4 % (21-51); MEAN CORPUSCULAR HEMOGLOBIN 28.8 PG (27.0-31.0); MEAN CORPUSCULAR HGB CONC 32.9 g/dL (33.0-36.5); MEAN CORPUSCULAR VOLUME 87.6 FL (78-98); MEAN PLATELET VOLUME 8.4 FL (7.4-10.4); MONOCYTES # (AUTO) 0.3 X10'3 (0-0.9); NEUTROPHILS % (AUTO) 77.9 % (42-75); PLATELET COUNT 75 X10'3 (140-440); RED BLOOD COUNT 2.55 X10'6 (4.70-6.10); RED CELL DISTRIBUTION WIDTH 14.9 % (11.5-14.5); WHITE BLOOD COUNT 5.1 X10'3 (4.5-11.0)
[2019-09-02 03:20] LABS: ALBUMIN 1.3 G/DL (3.4-5.0); ANION GAP 4 (8-16); BLOOD UREA NITROGEN 16 MG/DL (7-18); BUN/CREATININE RATIO 22.9 (5.4-32.0); CALCIUM 7.5 MG/DL (8.5-10.1); CHLORIDE 114 MMOL/L (99-107); GLUCOSE 111 MG/DL (70-104); MAGNESIUM 1.5 MG/DL (1.5-2.4); PHOSPHORUS 2.6 MG/DL (2.3-4.5); POTASSIUM 3.6 MMOL/L (3.5-5.1); SODIUM 141 MMOL/L (135-145); TOTAL CARBON DIOXIDE 23.3 MMOL/L (24-32); eGFR > 90 ML/MIN
[2019-09-02] MEDS: normal saline 1000ml 1,000 ML IV SCH ×2 (04:39→16:39)
[2019-09-02] MEDS: docusate sod 100mg capsule PO SCH ×2 (07:14→20:00)
[2019-09-02] MEDS: K and/or MAG REPLACEMENT MC SCH ×2 (07:14→20:00)
[2019-09-02] MEDS: thiamine 100mg tablet PO SCH (07:58)
[2019-09-02] MEDS: lactobacillus rhamnosus 10,000 MMU CELLS/CAPSULE PO SCH ×2 (07:58→19:02)
[2019-09-02] MEDS: multivitamins, therapeutics tablet PO SCH (07:58)
[2019-09-02] MEDS: folic acid 1mg tablet PO SCH (07:58)
[2019-09-02] MEDS: CefTRIAXone 2gm/D5W 50ml 50 ML IV SCH (07:59)
[2019-09-02] MEDS ORDERED: levoFLOXACIN 750MG TABLET PO SCH (08:00)
--- NOTE | 2019-09-02 09:24 | NUR ---
PICC line being placed
--- NOTE | 2019-09-02 09:48 | NUR ---
PICC LINE INFO: REF: [id number] LOT: [id number] EXP: 01/19/20
--- NOTE | 2019-09-02 15:37 | NUR ---
Patient in room CICU 2010. I have received report from LUIS M Lacey and had the opportunity to ask questions.
--- NOTE | 2019-09-02 15:48 | NUR ---
Patient arrived from 2010 via wheelchair. Ambulated with 2 person standby to bed. Oriented to room, call light within reach. 2 RN skin check complete. First set of vitals complete. Temp 97.6, BP 135/86, HR 94, R 18, 02 96 room air, Pain 5/10 right side on abdomen.
--- NOTE | 2019-09-02 18:34 | NUR ---
Problems reprioritized. Patient report given, questions answered & plan of care reviewed with LUIS M Brown and LUIS M Calzada. Checked and emptied ELIAS drain with 60ml out. Explained pt was an ICU transfer and the plan for him is to go to rehab with IV antibiotics for 4-6 weeks. All patient needs met at this time.
--- NOTE | 2019-09-02 18:37 | NUR ---
Patient in room PCU 3012. I have received report from Bettie ASENCIO and had the opportunity to ask questions and assume patient care.
[2019-09-02] MEDS: acetaminophen 325mg tablet PO PRN (19:03)
[2019-09-03] MEDS: normal saline 1000ml 1,000 ML IV SCH (01:37)
[2019-09-03 02:00] VITALS: BP 142/88
[2019-09-03 06:00] VITALS: BP 127/79
--- NOTE | 2019-09-03 06:22 | NUR ---
Patient in room PCU 3012. I have received report from Stephanie RN and LUIS M Blackwell and had the opportunity to ask questions and assume patient care.
--- NOTE | 2019-09-03 06:26 | NUR ---
Problems reprioritized. Patient report given, questions answered & plan of care reviewed with Bettie ASENCIO.
[2019-09-03] MEDS: docusate sod 100mg capsule PO SCH (08:00)
[2019-09-03] MEDS: K and/or MAG REPLACEMENT MC SCH (08:00)
[2019-09-03] MEDS: multivitamins, therapeutics tablet PO SCH (08:02)
[2019-09-03] MEDS: lactobacillus rhamnosus 10,000 MMU CELLS/CAPSULE PO SCH (08:02)
[2019-09-03] MEDS: thiamine 100mg tablet PO SCH (08:02)
[2019-09-03] MEDS: CefTRIAXone 2gm/D5W 50ml 50 ML IV SCH (08:03)
[2019-09-03] MEDS: folic acid 1mg tablet PO SCH (08:03)
[2019-09-03 08:28] LABS: BASOPHILS % (AUTO) 0.6 % (0-1); EOSINOPHILS # (AUTO) 0.1 X10'3 (0-0.9); EOSINOPHILS % (AUTO) 0.9 % (0-6); HEMOGLOBIN 8.2 g/dl (14.0-17.9); LYMPHOCYTES % (AUTO) 16.6 % (21-51); MEAN CORPUSCULAR HEMOGLOBIN 28.8 PG (27.0-31.0); MEAN CORPUSCULAR HGB CONC 32.7 g/dL (33.0-36.5); MEAN PLATELET VOLUME 7.9 FL (7.4-10.4); MONOCYTES # (AUTO) 0.3 X10'3 (0-0.9); MONOCYTES % (AUTO) 4.2 % (2-12); NEUTROPHILS # (AUTO) 4.8 X10'3 (1.8-7.7); NEUTROPHILS % (AUTO) 77.7 % (42-75); PLATELET COUNT 96 X10'3 (140-440); RED BLOOD COUNT 2.84 X10'6 (4.70-6.10); RED CELL DISTRIBUTION WIDTH 14.8 % (11.5-14.5); WHITE BLOOD COUNT 6.2 X10'3 (4.5-11.0)
[2019-09-03 08:41] LABS: ALANINE AMINOTRANSFERASE 24 U/L (12-78); ALBUMIN 1.4 G/DL (3.4-5.0); ALBUMIN/GLOBULIN RATIO 0.4 (1.1-1.5); ALKALINE PHOSPHATASE 73 IU/L (46-116); ANION GAP 5 (8-16); ASPARTATE AMINO TRANSFERASE 31 U/L (10-37); BILIRUBIN,TOTAL 0.3 MG/DL (0.1-1.0); BLOOD UREA NITROGEN 10 MG/DL (7-18); BUN/CREATININE RATIO 15.2 (5.4-32.0); CALCIUM 7.1 MG/DL (8.5-10.1); CHLORIDE 110 MMOL/L (99-107); CREATININE 0.66 MG/DL (0.60-1.10); GLUCOSE 130 MG/DL (70-104); MAGNESIUM 1.4 MG/DL (1.5-2.4); PHOSPHORUS 2.4 MG/DL (2.3-4.5); POTASSIUM 3.4 MMOL/L (3.5-5.1); SODIUM 141 MMOL/L (135-145); TOTAL CARBON DIOXIDE 25.6 MMOL/L (24-32); TOTAL PROTEIN 5.3 G/DL (6.4-8.2); eGFR > 90 ML/MIN
[2019-09-03] MEDS: magnesium Cl slow-release 64mg tablet PO PRN (10:05)
[2019-09-03 11:00] VITALS: BP 121/77
--- NOTE | 2019-09-03 11:05 | NUR ---
Discontinued PIV in right forearm, cannula intact. No complications noted.
--- NOTE | 2019-09-03 11:33 | NUR ---
Discontinued Jorge catheter per Dr Rubio orders. No complications, will continue to monitor for voiding and encouraged patient to try and void every 30 mins until he's consistent with voiding.
--- NOTE | 2019-09-03 13:28 | NUR ---
Reassessment: Pt PO improving to 50% avg meals. ONS remains unverified; NATIVIDAD d/w RN regarding recommendation for ensure enlive TIDWM given malnutrition status. Pt s/p streptococcal hepatic abscess drainage w/ ELIAS in place. Diarrhea noted today and colace held at this time. STACEY and metabolic acidosis resolved at this time per MD note. Will continue to monitor for additional protein needs. Recommendations: 1) Continue pureed diet with thin liquids per ST recs 2) chocolate/strawberry ensure enlive TIDWM 3) Continue Thiamine, Folic acid, and MVI given EtOH hx 4) Routine bowel care 5) weekly wts Addendum: 09/03/19 at [address] Amended: Links added.
[2019-09-03] MEDS ORDERED: potassium CL 10mEq/100ml bag 100 ML IV PRN ×2 (13:35)
[2019-09-03] MEDS ORDERED: potassium Cl 20 mEq SR tablet PO PRN ×2 (13:35)
[2019-09-03] MEDS ORDERED: MULT-1179 PO (13:42)
[2019-09-03] MEDS ORDERED: thiamine tablet PO (13:42)
[2019-09-03] MEDS ORDERED: folic acid tablet PO (13:42)
[2019-09-03] MEDS ORDERED: LACT1CAP26 PO (13:42)
[2019-09-03] MEDS ORDERED: CEFT2VIA13 IV (13:42)
[2019-09-03 15:00] VITALS: BP 118/75
--- NOTE | 2019-09-03 17:00 | NUR ---
Called report to LUIS M Parmar [place] [facility] Patient stable for transfer. All patient's questions were answered. All belongings were collected, sent with patient and [facility] personnel. PICC in right upper arm stayed in patient per orders. Notified [facility] personnel that patient had a ELIAS drain and PICC line. Tele discontinued, television news photographer notified. Patient was transferred on a gurney with [facility] personnel. All patient needs have been met
[2019-09-05 10:51] LABS: OCCULT BLOOD STOOL NEGATIVE (Neg)
== END 2019-09-03 17:10 | DRG 871 ==
LOC: ER 16:02 → ED HOLD 18:39 → SUR 3N 21:30 → CICU 2S 08-28 09:37 → PCU 3S 09-02 15:48
PROVIDERS: ADMIT Family Medicine; ATTEND Internal Medicine Critical Care Medicine
PROC: BW211ZZ Computerized Tomography (CT Scan) of Abdomen and Pelvis using Low Osmolar Contrast (ICD-10-PCS; 2019-08-27)
PROC: 5A1935Z Respiratory Ventilation, Less than 24 Consecutive Hours (ICD-10-PCS; principal; 2019-08-28)
PROC: 0BH17EZ Insertion of Endotracheal Airway into Trachea, Via Natural or Artificial Opening (ICD-10-PCS; 2019-08-28)
PROC: 02HV33Z Insertion of Infusion Device into Superior Vena Cava, Percutaneous Approach (ICD-10-PCS; 2019-08-28)
PROC: 0F9130Z Drainage of Right Lobe Liver with Drainage Device, Percutaneous Approach (ICD-10-PCS; 2019-09-01)
DX: A40.8 Other streptococcal sepsis (principal); J96.00 Acute respiratory failure, unspecified whether with hypoxia or hypercapnia; K75.0 Abscess of liver; R65.21 Severe sepsis with septic shock; E87.1 Hypo-osmolality and hyponatremia; N17.9 Acute kidney failure, unspecified; E87.2 Acidosis; D69.6 Thrombocytopenia, unspecified; F10.20 Alcohol dependence, uncomplicated; D64.9 Anemia, unspecified; R16.0 Hepatomegaly, not elsewhere classified; E87.6 Hypokalemia; R26.81 Unsteadiness on feet; N18.3 Chronic kidney disease, stage 3 (moderate); F12.90 Cannabis use, unspecified, uncomplicated; F17.200 Nicotine dependence, unspecified, uncomplicated; N40.0 Benign prostatic hyperplasia without lower urinary tract symptoms; R62.7 Adult failure to thrive; K59.00 Constipation, unspecified; Z90.49 Acquired absence of other specified parts of digestive tract; Z68.21 Body mass index [BMI] 21.0-21.9, adult
CPT/HCPCS: 36415; 36573; 36600; 49405; 71045; 74160; 74176; 76937; 80048; 80053; 80320; 81001; 82103; 82140; 82272; 82570; 82803; 82810; 82945; 82948; 83540; 83550; 83605; 83615; 83690; 83735; 83880; 84100; 84145; 84157; 84300; 84484; 85018; 85025; 85610; 86885; 86900; 86901; 87040; 87070; 87075; 87077; 87081; 87102; 87186; 87207; 88108; 88305; 89051; 92508; 92616; 93005; 93306; 94002; 94003; 94640; 94667; 94668; 94760; 96365; 97110; 97116; 97162; 97530; 97535; 99285; G0378; J0692; J0696; J0744; J1956; J2250; J2930; J3010; J3411; J3490; J7030; Q9967

== ENCOUNTER 2019-09-15 09:13 | Outpatient (CLI) | payer OTHER ==
[~2019-09-15 09:13] MED LIST changes: +CEFT2VIA13 IV; +LACT1CAP26 PO; +MULT-1179 PO; -etomidate 2mg/ml inj. ONE; +folic acid tablet PO; +iohexol 300mg/ml 100ml inj. ONE; +thiamine tablet PO
== END 2019-09-15 23:59 | disposition home or self-care (01) ==
LOC: 64 CT 09:13
PROVIDERS: ATTEND Internal Medicine Infectious Disease
DX: K75.0 Abscess of liver (principal); N20.0 Calculus of kidney; K59.00 Constipation, unspecified; J98.11 Atelectasis; J90 Pleural effusion, not elsewhere classified
CPT/HCPCS: 74177; Q9967

== ENCOUNTER 2019-09-25 10:46 | Day surgery (SDC) | payer OTHER ==
[~2019-09-25 10:46] MED LIST changes: -iohexol 300mg/ml 100ml inj. ONE
[2019-09-25 11:00] VITALS: BP 117/76
[2019-09-25] MEDS ORDERED: CEFT1VIA14 IV (11:47)
[2019-09-25] MEDS ORDERED: ACET-1008 PO (11:47)
[2019-09-25] MEDS ORDERED: MULT-1002 PO (11:47)
[2019-09-25] MEDS ORDERED: THIA50TA10 PO (11:47)
[2019-09-25] MEDS ORDERED: FOLI0.4T2 PO (11:47)
[2019-09-25] MEDS ORDERED: LACT1CAP65 PO (11:47)
[2019-09-25] MEDS ORDERED: POLY119P2 PO (11:50)
--- NOTE | 2019-09-25 12:00 | NUR ---
DR. AGUSTIN HERE TO SEE PATIENT. ULTRASOUND ELIAS REMOVAL DONE AT BEDSIDE BY DR. AGUSTIN. DRESSING WAS REMOVED, CATHETER WAS REMOVED BY DR. AGUSTIN USING ULTRASOUND. BANDAIDE APPLIED BY Angel NO ATTEMPT MADE TO REPLACE. NO DISTRESS NOTED. PATIENT TO BE TRANSPORTED BY [facility] BACK TO [facility].
[2019-09-25 12:05] VITALS: BP 122/80
[2019-09-25 12:20] VITALS: BP 134/57
== END 2019-09-25 12:30 ==
LOC: SSTAY O 10:46
PROVIDERS: ATTEND Radiology Diagnostic Radiology
DX: Z45.2 Encounter for adjustment and management of vascular access device (principal); Z79.899 Other long term (current) drug therapy
CPT/HCPCS: 36589; 76705